=== PATIENT | male | born 1960 ===

== ENCOUNTER 2018-11-24 17:03 | Observation (INO) | payer MEDICAID ==
[2018-11-24] MEDS ORDERED: Piperacillin/Tazobact 3.375 gm 100 ML IVPB ONE (18:26)
[2018-11-24 18:33] LABS: BASO # 0.1 K/uL (0.0-0.2); BASO % 0.7 % (0.0-2.0); EOS # 0.2 K/uL (0.0-0.7); EOS % 2.1 % (0.0-4.0); LYMPH # 1.5 K/uL (1.0-4.3); LYMPH % 16.3 % (20.0-40.0); MEAN CELL VOLUME 84.1 fL (80.0-94.0); MEAN CORPUSCULAR HEMOGLOBIN 28.2 pg (27.0-31.0); MEAN CORPUSCULAR HGB CONC 33.6 g/dL (33.0-37.0); MEAN PLATELET VOLUME 7.7 fL (7.2-11.7); MONO # 1.1 K/uL (0.0-0.8); MONO % 11.9 % (0.0-10.0); NEUT # 6.5 K/uL (1.8-7.0); RBC 4.24 Mil/uL (4.40-5.90); RED CELL DISTRIBUTION WIDTH 13.4 % (11.5-14.5); WHITE BLOOD COUNT 9.4 K/uL (4.8-10.8)
[2018-11-24 18:47] LABS: ALB/GLOB RATIO 1.1 (1.0-2.1); ALT/SGPT 188 U/L (21-72); AST/SGOT 69 U/L (17-59); BLOOD UREA NITROGEN 15 mg/dL (9-20); CALCIUM 9.5 mg/dl (8.6-10.4); GFR NON-AFRICAN AMERICAN > 60
[2018-11-24 19:02] LABS: FREE T4 2.71 ng/dL (0.78-2.19)
--- NOTE | 2018-11-24 19:47 | C.PDOC ---
History Of Present Illness 57 year old male presents to the ED for evaluation of unintended weight loss of 7 pounds, daily fever and neck pain for the past 2 moths. Patient states he has an US done several weeks ago which showed thyroid enlargement. Patient reports he did not had any treatment for it. Patient went to see his PMD today with recurring symptoms and was told he "needed admission for thyroid storm". Patient denies chills, dizziness, visual changes, SOB, palpitations, nausea, vomit, abdominal pain. Time Seen by Provider: 11/24/18 17:52 Chief Complaint (Nursing): ENT Problem History Per: Patient History/Exam Limitations: no limitations Onset/Duration Of Symptoms: Days (2 months) Current Symptoms Are (Timing): Still Present Reports Recently: Treated By A Physician (PMD today) Recent travel outside of the [place]: No Additional History Per: Patient Past Medical History Reviewed: Historical Data, Nursing Documentation, Vital Signs Vital Signs: Last Vital Signs Temp 98.3 F 11/24/18 17:13 Pulse 96 H 11/24/18 19:09 Resp 15 11/24/18 19:09 BP 149/79 11/24/18 19:09 Pulse Ox 98 11/24/18 19:09 - Medical History PMH: HTN, Hypercholesterolemia, Hyperthyroidism Denies: Chronic Kidney Disease Surgical History: Endoscopy - [facility] Procedures ANTERIOR RECT RESECT NEC (06/22/14) APPL/ADMIN OF AN ADHESION BARRIER SUBSTANCE (06/22/14) Family History: States: Unknown Family Hx - Social History Hx Alcohol Use: Yes Hx Substance Use: No - Immunization History Hx Tetanus Toxoid Vaccination: No Hx Influenza Vaccination: No Hx Pneumococcal Vaccination: No Review Of Systems Constitutional: Positive for: Fever, Weight loss. Negative for: Chills Eyes: Negative for: Vision Change Cardiovascular: Negative for: Chest Pain, Palpitations Respiratory: Negative for: Shortness of Breath Gastrointestinal: Negative for: Nausea, Vomiting, Abdominal Pain Musculoskeletal: Positive for: Neck Pain Skin: Negative for: Rash Neurological: Negative for: Weakness, Numbness, Headache, Dizziness Physical Exam - Physical Exam Appears: Non-toxic, No Acute Distress Skin: Normal Color, Warm, Dry Head: Atraumatic, Normacephalic Eye(s): bilateral: Normal Inspection Oral Mucosa: Moist Neck: Normal ROM, Supple, Other (enlarged and tender thyroid) Chest: Symmetrical Cardiovascular: Rhythm Regular (tachycardic) Respiratory: Normal Breath Sounds, No Rales, No Rhonchi, No Wheezing Gastrointestinal/Abdominal: Soft, No Tenderness, No Guarding, No Rebound Extremity: Normal ROM, No Tenderness, No Swelling Neurological/Psych: Oriented x3, Normal Speech, Normal Cognition Gait: Steady ED Course And Treatment - Laboratory Results Result Diagrams: 11/24/18 18:29 11/24/18 18:29 Lab Results: Total Bilirubin 0.2 mg/dL (0.2-1.3) 11/24/18 18:29 AST 69 U/L (17-59) H 11/24/18 18:29 ALT 188 U/L (21-72) H 11/24/18 18:29 Alkaline Phosphatase 116 U/L (38-126) 11/24/18 18: Total Protein 7.6 g/dL (6.3-8.3) 11/24/18 18: Albumin 4.0 g/dL (3.5-5.0) 11/24/18 18: Globulin 3.6 gm/dL (2.2-3.9) 11/24/18 18:29 Albumin/Globulin Ratio 1.1 (1.0-2.1) 11/24/18 18:29 ECG: Interpreted By Me ECG Rhythm: Sinus Tachycardia Interpretation Of ECG: normal axis, normal intervals, no ST elevation Rate From EC O2 Sat by Pulse Oximetry: 98 (ON RA) Pulse Ox Interpretation: Normal Medical Decision Making Medical Decision Making: Plan: * EKG * Labs EKG and labs reviewed. Mildly tachycardic, not hypertensive. Unlikely thyroid storm. Case discussed with PMD Dr. Cronin, will keep patient for observation. Patient remained stable throughout ED course. Lab results discussed with patient. Amenable to admission. Disposition - Disposition Disposition: HOSPITALIZED Disposition Time: 20:14 Condition: STABLE - Clinical Impression Clinical Impression: Hyperthyroidism - Scribe Statement The provider has reviewed the documentation as recorded by the Scribe Dany Little All medical record entries made by the Scribe were at my direction and personally dictated by me. I have reviewed the chart and agree that the record accurately reflects my personal performance of the history, physical exam, medical decision making, and the department course for this patient. I have also personally directed, reviewed, and agree with the discharge instructions and disposition.
[2018-11-24] MEDS ORDERED: methIMAzole 5 MG TAB PO SCH (21:30)
--- NOTE | 2018-11-24 21:44 | CP.PCM.HP ---
Present on Admission - Present on Admission Any Indicators Present on Admission: No Past Patient History - Infectious Disease Hx of Infectious Diseases: None - Past Medical History & Family History Past Medical History?: Yes - Past Social History Smoking Status: Never Smoked - CARDIAC Hx Hypercholesterolemia: Yes Hx Hypertension: Yes - PULMONARY Hx Respiratory Disorders: No - NEUROLOGICAL Hx Neurological Disorder: No - HEENT Hx HEENT Problems: No - RENAL Hx Chronic Kidney Disease: No - ENDOCRINE/METABOLIC Hx Hyperthyroidism: Yes - HEMATOLOGICAL/ONCOLOGICAL Hx Blood Disorders: Yes Hx Cancer: Yes (COLON CANCER) - INTEGUMENTARY Hx Dermatological Problems: No - MUSCULOSKELETAL/RHEUMATOLOGICAL Hx Musculoskeletal Disorders: No Hx Falls: No - GASTROINTESTINAL Hx Gastrointestinal Disorders: Yes (COLON CANCER) Other/Comment: Constipation bloody stool 1 month ago - GENITOURINARY/GYNECOLOGICAL Hx Genitourinary Disorders: No - PSYCHIATRIC Hx Substance Use: No - SURGICAL HISTORY Hx Surgeries: Yes Other/Comment: Colon Ca surgery back in 2013 - ANESTHESIA Hx Anesthesia: Yes Hx Anesthesia Reactions: No Hx Malignant Hyperthermia: No Meds Allergies/Adverse Reactions: Allergies Allergy/AdvReac Type Severity Reaction Status Date / Time No Known Allergies Allergy Verified 11/24/18 17:18 Results - Vital Signs Recent Vital Signs: Last Vital Signs Temp 98.3 F 11/24/18 17:13 Pulse 105 H 11/24/18 20:55 Resp 14 11/24/18 20:55 BP 130/81 11/24/18 20:55 Pulse Ox 98 11/24/18 20:55 - Labs Result Diagrams: 11/24/18 18:29 11/24/18 18:29 Labs: Laboratory Results - last 24 hr 11/24/18 11/24/18 11/24/18 18:29 18:29 18:29 WBC 9.4 D RBC 4.24 L Hgb 12.0 Hct 35.7 MCV 84.1 D MCH 28.2 MCHC 33.6 RDW 13.4 Plt Count 628 H D MPV 7.7 Neut % (Auto) 69.0 Lymph % (Auto) 16.3 L Dunn % (Auto) 11.9 H Eos % (Auto) 2.1 Baso % (Auto) 0.7 Neut # (Auto) 6.5 Lymph # (Auto) 1.5 Dunn # (Auto) 1.1 H Eos # (Auto) 0.2 Baso # (Auto) 0.1 Sodium 134 Potassium 4.7 Chloride 96 L Carbon Dioxide 29 Anion Gap 14 BUN 15 Creatinine 0.9 Est GFR ( Amer) > 60 Est GFR (Non-Af Amer) > 60 Random Glucose 178 H D Calcium 9.5 Phosphorus 4.0 Magnesium 2.1 Total Bilirubin 0.2 AST 69 H ALT 188 H Alkaline Phosphatase 116 Total Protein 7.6 Albumin 4.0 Globulin 3.6 Albumin/Globulin Ratio 1.1 Free T4 2.71 H TSH 3rd Generation < 0.02 L
[2018-11-24] MEDS: Sodium Chloride 0.9% 1,000 ML IV SCH (22:13)
[2018-11-24 22:43] VITALS: RESP 20
--- NOTE | 2018-11-24 23:28 | CP.PCM.CON ---
Past Patient History - Infectious Disease Hx of Infectious Diseases: None - Past Medical History & Family History Past Medical History?: Yes - Past Social History Smoking Status: Never Smoked - CARDIAC Hx Hypercholesterolemia: Yes Hx Hypertension: Yes - PULMONARY Hx Respiratory Disorders: No - NEUROLOGICAL Hx Neurological Disorder: No - HEENT Hx HEENT Problems: No - RENAL Hx Chronic Kidney Disease: No - ENDOCRINE/METABOLIC Hx Hyperthyroidism: Yes - HEMATOLOGICAL/ONCOLOGICAL Hx Blood Disorders: Yes Hx Cancer: Yes (COLON CANCER) - INTEGUMENTARY Hx Dermatological Problems: No - MUSCULOSKELETAL/RHEUMATOLOGICAL Hx Musculoskeletal Disorders: No Hx Falls: No - GASTROINTESTINAL Hx Gastrointestinal Disorders: Yes (COLON CANCER) Other/Comment: Constipation bloody stool 1 month ago - GENITOURINARY/GYNECOLOGICAL Hx Genitourinary Disorders: No - PSYCHIATRIC Hx Substance Use: No - SURGICAL HISTORY Hx Surgeries: Yes Other/Comment: Colon Ca surgery back in 2013 - ANESTHESIA Hx Anesthesia: Yes Hx Anesthesia Reactions: No Hx Malignant Hyperthermia: No Meds Allergies/Adverse Reactions: Allergies Allergy/AdvReac Type Severity Reaction Status Date / Time No Known Allergies Allergy Verified 11/24/18 17:18 - Medications Medications: Current Medications Enoxaparin Sodium (Lovenox) 40 mg SC DAILY [facility] Sodium Chloride (Sodium Chloride 0.9%) 1,000 mls @ 100 mls/hr IV .Q10H [facility] Last Admin: 11/24/18 22:13 Dose: 100 mls/hr Methimazole (Tapazole) 5 mg PO BID [facility] Last Admin: 11/24/18 22:13 Dose: 5 mg Pneumococcal Polyvalent Vaccine (Pneumovax 23 Vaccine) 0.5 ml IM .ONCE ONE Stop: 11/26/18 10:01 Propranolol HCl (Inderal) 10 mg PO TID [facility] Results - Vital Signs Recent Vital Signs: Last Vital Signs Temp 100.3 F H 11/24/18 22:00 Pulse 109 H 11/24/18 22:00 Resp 20 11/24/18 22:00 BP 143/73 11/24/18 22:00 Pulse Ox 98 11/24/18 20:55 - Labs Result Diagrams: 11/24/18 18:29 11/24/18 18:29 Labs: Laboratory Results - last 24 hr 11/24/18 11/24/18 11/24/18 18:29 18:29 18:29 WBC 9.4 D RBC 4.24 L Hgb 12.0 Hct 35.7 MCV 84.1 D MCH 28.2 MCHC 33.6 RDW 13.4 Plt Count 628 H D MPV 7.7 Neut % (Auto) 69.0 Lymph % (Auto) 16.3 L Culberson % (Auto) 11.9 H Eos % (Auto) 2.1 Baso % (Auto) 0.7 Neut # (Auto) 6.5 Lymph # (Auto) 1.5 [place] # (Auto) 1.1 H Eos # (Auto) 0.2 Baso # (Auto) 0.1 Sodium 134 Potassium 4.7 Chloride 96 L Carbon Dioxide 29 Anion Gap 14 BUN 15 Creatinine 0.9 Est GFR ( Amer) > 60 Est GFR (Non-Af Amer) > 60 Random Glucose 178 H D Calcium 9.5 Phosphorus 4.0 Magnesium 2.1 Total Bilirubin 0.2 AST 69 H ALT 188 H Alkaline Phosphatase 116 Total Protein 7.6 Albumin 4.0 Globulin 3.6 Albumin/Globulin Ratio 1.1 Free T4 2.71 H TSH 3rd Generation < 0.02 L Assessment & Plan (1) Hyperthyroidism Assessment and Plan: Endocrine consult reason for consult: uncontrolled diabetes Source: patient and chart review Mr. Farnsworth is 57 y/o admitted for hyperthyroidism as per pt.has no previous history of thyroid disorder , admitted to fever on & off for last 2 month , lost 10 lb , admits to palpitation ( only on exercision ) & sweating , denies no change in bowel movements, fluctuating appetite , denies tremors. as per pt has neck pain . denies fhx thyroid disorder / cancer , s/p ER @ [facility] for fever 11/06/2018 was evaluated & discharged from ER . as per pt. has colon cancer s/p surgery 2013 Allergy NKDA Past medical history:colon cancer Past surgical history: colon cancer surgery psychiatry history: denies Social history: denies smoking , ETOH use ( occasionally ) , denies illicit drug use Family history: mother with diabetes ROS: Constitutional: (+) fever, tiredness/weakness. HEENT: (+) neck pain , denies earache, change in voice .Respiratory: denies cough, sob . CVS :no chest pain, no palpitations . Abdomen: no abdominal pain, no nausea /vomiting, no change bowel movement. 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 Extremities: no edema, no palpable hand tremors. Skin: no itching, no rash Physical exam Well-developed AAO x3 , ,NAD , mildly anxious bp 143/73 p 109 , r 20 t 100.3 HEENT: norm cephalic, atraumatic, no lid lag , no exophthalmos NECK: supple, no palpable lymphadenopathy THYROID: (+) palpable thyromegaly, marked tenderness CHEST: fair air entry, bilateral, CVS: S1,S2 ABDOMEN: bowel sound present, benign, obese, no wide purple striae , no bruises EXTREMITIES: no edema, clubbing or cyanosis, no palpable hand tremors Skin: acanthosis nigricans -lab: tsh < 0.02 ft4 2.71 , ast 69 , alt 188 , wbc 9.4 , glucose 178 thyroid us 10/2018 provided by pt. thyroiditid , thyroid cyst Assessment: hyperthyroid possible storm vs sepsis subacute thyroiditis goiter persistent fever with thyroid cancer hyperglycemia plan : start tapazole 20 mg q6h start propranol 20 mg po tid start hydrocortisone iv q8 h after stat lab thyroid us obtain tsh , t3,t4, ft3,ft4 , TPO & TG abs , TSI , sed rate obtain a1c t/c ID evaluation plan communicated with nurse in charge who read back the instructions correctly Thank you for allowing me to participate in the care of the patient, we will follow with you. Bam Barnett # [phone] office Fridays & Saturdays address: [address] [place] [address] ,phone # [phone] ,FAX [phone] Status: Acute (2) Subacute thyroiditis Status: Acute (3) Goiter Status: Acute (4) Hyperglycemia Status: Acute
--- NOTE | 2018-11-25 03:15 | HP ---
CHIEF COMPLAINT: Palpitation, fever. HISTORY OF PRESENT ILLNESS: This is a 57-year-old male with history of colon cancer in the remote past. He also was recently diagnosed with toxic multinodular goiter, and the patient is undergoing workup until today. He started having palpitation, weakness, dizziness, headache, fever, and he was admitted to the floor. According to the patient, he has about 7 pounds of weight loss. According to the patient, he underwent a thyroid ultrasound which showed enlarged thyroid. Yesterday, he was supposed to get thyroid uptake and scan. Because of the recent CAT scan, his thyroid uptake and scan could not be done today. He was anxious with palpitation, weakness, dizziness. No history of chest pain. No nausea, vomiting, diarrhea. No history of polyuria, polydipsia, polyphagia. PAST MEDICAL HISTORY: Colon CA. SOCIAL HISTORY: Nonsmoker, non-EtOH user. CURRENT MEDICATIONS: None. FAMILY HISTORY: Positive for diabetes. PHYSICAL EXAMINATION: GENERAL: A middle-aged male, in no acute distress. He is flushed. VITAL SIGNS: Blood pressure 149/79, pulse 96, respiratory rate 15, temperature 98.3. SKIN: Dry. Poor turgor. HEENT: Atraumatic, normocephalic. Negative pallor. Negative jaundice. Extraocular movements are intact. NECK: Supple. No JVD. There is a large multinodular goiter, nontender. Negative carotid bruit. Negative thyroid bruits. LUNGS: Clear. No rales. No rhonchi. CARDIOVASCULAR SYSTEM: S1 and S2, regular. ABDOMEN: Soft, nontender. Bowel sounds are positive. EXTREMITIES: No clubbing, cyanosis, or edema. CENTRAL NERVOUS SYSTEM: Awake, alert, oriented x3. ASSESSMENT: 1. Toxic multinodular goiter. Rule out thyrotoxicosis. Rule out thyroid storm. 2. Dehydration. 3. Fever. Rule out septicemia. PLAN: Admit. Detailed orders are written. Seen and examined. Antwon Cronin MD
[2018-11-25 07:36] VITALS: TEMP 97.7
[2018-11-25] MEDS: Sodium Chloride 0.9% 1,000 ML IV SCH (08:07)
[2018-11-25] MEDS ORDERED: Enoxaparin 40 mg Syringe SC SCH (10:00)
--- NOTE | 2018-11-25 13:21 | US ---
Thyroid ultrasound HISTORY: Thyroid tenderness. Comparison: None available. Technique: Real-time sonography was performed through the thyroid. Findings: Right lobe: 5.4 x 2.2 x 2.1 centimeters. Bulky heterogeneous nodular echotexture. Increased vascular flow. Thyroid isthmus measures 5 millimeters. Bulky heterogeneous echotexture. Increased vascular flow. Left lobe: 5.4 x 2.5 x 2.1 centimeters. Bulky heterogeneous nodular echotexture. Increased vascular flow. No discrete nodules or abscess collections were documented by the technologist. Incidentally noted were bilateral lymph nodes in the submandibular regions measuring up to 1.5 x 0.4 centimeters on the right measuring up to 1.0 x 0.4 centimeters on the left. Impression: Bulky nodular heterogeneous thyroid gland with associated increased vascular flow. Clinical correlation. If there is persistent concern for abscess, correlation with contrast-enhanced neck CT may be helpful if clinically indicated. Shotty bilateral lymph nodes as described above in the submandibular region.
--- NOTE | 2018-11-25 17:05 | CP.PCM.PN ---
Subjective - Date & Time of Evaluation Date of Evaluation: 11/25/18 Time of Evaluation: 17:04 - Subjective Subjective: PATIENT SEEN AND EXAMINED AT THE BEDSIDE Objective - Vital Signs/Intake and Output Vital Signs (last 24 hours): Temp Pulse Resp BP Pulse Ox 97.7 F 74 20 118/73 97 11/25/18 07:00 11/25/18 07:00 11/25/18 07:00 11/25/18 07:00 11/25/18 12:37 Intake and Output: 11/25/18 11/25/18 06:59 18:59 Intake Total 840 1150 Balance 840 1150 - Medications Medications: Current Medications Enoxaparin Sodium (Lovenox) 40 mg SC DAILY [facility] Last Admin: 11/25/18 09:18 Dose: 40 mg Hydrocortisone Sodium Succinate (Solu-Cortef) 100 mg IV Q8H [facility] Last Admin: 11/25/18 16:37 Dose: 100 mg Sodium Chloride (Sodium Chloride 0.9%) 1,000 mls @ 100 mls/hr IV .Q10H [facility] Last Admin: 11/25/18 08:07 Dose: 100 mls/hr Methimazole (Tapazole) 20 mg PO RQ6 [facility] Last Admin: 11/25/18 14:00 Dose: 20 mg Pneumococcal Polyvalent Vaccine (Pneumovax 23 Vaccine) 0.5 ml IM .ONCE ONE Stop: 11/26/18 10:01 Propranolol HCl (Inderal) 20 mg PO TID [facility] Last Admin: 11/25/18 14:00 Dose: 20 mg - Labs Labs: 11/24/18 18:29 11/24/18 18:29 Assessment and Plan - Assessment and Plan (Free Text) Assessment: FOLLOW UP WITH DR MERLOS IN HIS OFFICE CONTINUE HOME MEDICATION NEW PRESCRIPTION BY DR MERLOS TAPAZOLE 5 MG PO BID INDERAL 10 MG PO BID FOR 15 DAYS ACTIVITY TOLERATED CALL DR MERLOS OR GO TO THE EMERGENCY ROOM IF SYMPTOM RETURN OR WORSENING
--- NOTE | 2018-11-25 17:06 | CARD ---
APPROVED REPORT Date of service: 11/24/2018 EKG Measurement Heart [id number] <Conclusion> Sinus tachycardia Otherwise normal
[2018-11-25 17:10] VITALS: BP 145/82; PULSE 85; O2SAT 98
--- NOTE | 2018-11-26 06:42 | DS ---
DISCHARGE DIAGNOSES: Toxic multinodular goiter. HISTORY OF PRESENT ILLNESS: This is a 57-year-old male who came in because of palpitation, weakness, dizziness, and the patient had high thyroid hormones with low TSH and a large multinodular goiter. There was as question of thyroid storm. The patient was admitted. The patient was started on Tapazole, Inderal, and he did well. He is for discharge. He needs scan and endocrinology consult, and he will be followed up as outpatient. TSH was less than 0.02. PHYSICAL EXAMINATION: VITAL SIGNS: Blood pressure 124/82, pulse 65, respiratory rate 20, temperature 97.7. NECK: He has a large multinodular goiter. LUNGS: Clear. CARDIOVASCULAR SYSTEM: S1 and S2, regular. PLAN: Discharge the patient on Tapazole, Inderal, and the patient will be followed up as outpatient. Antwon Cronin MD
[2018-11-26] MEDS ORDERED: Pneumococcal 23-Valent Vaccine IM ONE (10:00)
== END 2018-11-25 18:15 | disposition home or self-care (01) ==
LOC: C.ER 17:03 → C.9E 20:14 → C.3T 20:44
PROVIDERS: ADMIT Internal Medicine; ATTEND Internal Medicine
DX: E05.21 Thyrotoxicosis with toxic multinodular goiter with thyrotoxic crisis or storm (principal); E06.1 Subacute thyroiditis; E11.65 Type 2 diabetes mellitus with hyperglycemia; E78.00 Pure hypercholesterolemia, unspecified; E86.0 Dehydration; I10 Essential (primary) hypertension; Z83.3 Family history of diabetes mellitus; Z85.038 Personal history of other malignant neoplasm of large intestine
CPT/HCPCS: 36415; 76536; 80053; 83036; 83519; 83735; 84100; 84439; 84443; 84445; 85025; 85651; 86376; 86800; 93005; 99285; G0378; J1650; J1720; J7030